=== PATIENT | female | born 1990 | race Two or more races ===

== ENCOUNTER 2022-08-11 09:34 | Outpatient (CLI) | payer OTHER | END 2022-08-11 09:41 | disposition home or self-care (01) | LOC: RX STUDY 09:34 | PROVIDERS: ATTEND Obstetrics & Gynecology Reproductive Endocrinology | DX: N93.0 Postcoital and contact bleeding (principal) ==

== ENCOUNTER 2023-04-15 11:14 | Outpatient (CLI) | payer OTHER | END 2023-04-15 12:27 | disposition home or self-care (01) | LOC: PRENATAL 11:14 | PROVIDERS: ATTEND Obstetrics & Gynecology Maternal & Fetal Medicine | DX: O35.9XX0 Maternal care for (suspected) fetal abnormality and damage, unspecified, not applicable or unspecified (principal); O35.3XX0 Maternal care for (suspected) damage to fetus from viral disease in mother, not applicable or unspecified; Z3A.19 19 weeks gestation of pregnancy ==